=== PATIENT | female | born 1985 | race Two or more races ===

== ENCOUNTER → 2024-04-27 | Emergency (ER) | payer OTHER, BC ==
[~2024-04-27] VITALS: Ht 170.2 cm; Wt 86.2 kg
[~2024-04-27] MED LIST: ACETAMINOPHEN ES 500 MG TABLET ONE; IBUP-1490 PO; TRAM50TA2 PO
[2024-04-27] MEDS: ACETAMINOPHEN ES 500 MG TABLET PO ONE (12:33)
[2024-04-27 12:43] LABS: PREGNANCY TEST URINE QUAL NEGATIVE (NEGATIVE)
[2024-04-27 14:46] VITALS: BP 130/78; TEMP 97.5; O2SAT 99
== END | disposition home or self-care (01) ==
LOC: ER 11:36
DX: M54.2 Cervicalgia (principal); R51.9 Headache, unspecified; M54.59 Other low back pain; M79.602 Pain in left arm; V43.52XA Car driver injured in collision with other type car in traffic accident, initial encounter; Y93.89 Activity, other specified; Y92.410 Unspecified street and highway as the place of occurrence of the external cause; Y99.8 Other external cause status
CPT/HCPCS: 71045-TC; 72100-TC; 72125-TC; 72170-TC; 73030-TC; 73080-TC; 73110; 73130-TC; 84703-TC